=== PATIENT | male | born 1975 | race Caucasian/White ===

== ENCOUNTER 2017-08-28 07:45 | Emergency (ER) | payer MEDICAID, OTHER ==
[~2017-08-28] VITALS: Ht 185.4 cm; Wt 118.0 kg
[2017-08-28 07:52] VITALS: BP 170/104
[2017-08-28] MEDS ORDERED: GLIP5TAB12 PO (07:55)
[2017-08-28] MEDS ORDERED: LISI10TA5 PO (07:55)
== END 2017-08-28 11:21 | disposition left against medical advice (07) ==
LOC: ER 08:06
DX: M54.2 Cervicalgia (principal); Z53.21 Procedure and treatment not carried out due to patient leaving prior to being seen by health care provider